=== PATIENT | male | born 1970 | race Caucasian/White ===

== ENCOUNTER 2023-07-05 11:16 | Outpatient (OUT) | payer OTHER, SELFPAY ==
[2023-07-05 12:01] LABS: Basophils Percent Auto 0.7 % (0.2-2.0); Eosinophils Absolute Auto 0.3 10^3/uL (0.0-0.7); Eosinophils Percent Auto 4.4 % (0.9-7.0); Hematocrit 44.2 % (42.0-54.0); Hemoglobin 14.8 g/dL (14.0-18.0); Immature Granulocytes Abs Auto 0.02 10^3/uL (0.00-0.03); Immature Granulocytes Pct Auto 0.4 % (0.0-0.5); Lymphocytes Absolute Auto 1.3 10^3/uL (1.2-3.8); Lymphocytes Percent Auto 22.9 % (20.5-60.0); Mean Corpuscular HGB Conc 33.5 g/dL (29.9-35.2); Mean Corpuscular Volume 92.7 fL (80.0-94.0); Mean Platelet Volume 9.7 fL (9.5-13.5); Monocytes Absolute Auto 0.4 10^3/uL (0.3-0.8); Monocytes Percent Auto 6.5 % (1.7-12.0); Neutrophils Absolute Auto 3.7 10^3/uL (1.4-6.5); Neutrophils Percent Auto 65.1 % (43.0-75.0); Platelet Count 219 10^3/uL (150-450); Red Blood Count 4.77 10^6/uL (4.70-6.10); Red Cell Distribution Width 12.6 % (11.0-15.0); White Blood Count 5.7 10^3/uL (4.0-11.0)
[2023-07-05 12:58] LABS: Alanine Aminotransferase 42 U/L (16-63); Albumin Globulin Ratio 1.1; Albumin Level 4.1 g/dL (3.4-5.0); Alkaline Phosphatase 89 U/L (46-116); Anion Gap 10.5; Aspartate Amino Transferase 21 U/L (15-37); BUN Creatinine Ratio 17.1; Bilirubin Total 0.7 mg/dL (0.2-1.0); Carbon Dioxide 30.7 mmol/L (21.0-32.0); Chloride 103 mmol/L (98-107); Chol HDL Ratio 4.1; Cholesterol 197 mg/dL (<=200); Estimated GFR (African America >60 (>=60); Estimated GFR (Non-African Ame >60 (>=60); Free T3 3.29 pg/mL (2.18-3.98); Globulin 3.6 g/dL; Glucose 106 mg/dL (74-106); HDL Cholesterol 48 mg/dL (40-60); Potassium 4.2 mmol/L (3.5-5.1); Sodium 140 mmol/L (136-145); Thyroid Stimulating Hormone 1.271 uIU/mL (0.358-3.740); Total Protein 7.7 g/dL (6.4-8.2); Triglycerides 140 mg/dL (<=150)
[2023-07-05 13:06] LABS: Prostate Specific Antigen Dx 0.49 ng/mL (<=4.00)
[2023-07-05 13:08] LABS: Estimated Average Glucose 100 mg/dL; Glycohemoglobin A1C 5.1 % (4.5-6.2)
[2023-07-06 11:11] LABS: Insulin 21.3 uIU/mL (2.6-24.9)
== END 2023-07-05 11:17 | disposition home or self-care (01) ==
LOC: LAB 11:22
PROVIDERS: PCP Family Medicine; Visit Provider Family Medicine
DX: Z00.00 Encounter for general adult medical examination without abnormal findings (principal)
CPT/HCPCS: 36415; 80053; 80061; 83036; 83525; 84153; 84436; 84443; 84481; 85025

== ENCOUNTER 2023-07-18 07:59 | Outpatient (OUT) | payer OTHER, SELFPAY ==
--- NOTE | 2023-07-18 08:01 | US_ITS ---
[address] [address] Patient Name: VALENTE SALINAS MRN: [id number] date: 1970 Sex: M Assigned Patient Location: [place] Current Patient Location: [place] Accession/Order Number: [id number] Exam Date: 07/18/2023 08:02 Report Date: 07/18/2023 11:38 At the request of: AMELIE CHADWICK Procedure: US carotid duplex BI EXAMINATION: US carotid duplex BI HISTORY: Tinnitus H93.19 COMPARISON: No relevant comparison available. TECHNIQUE: Duplex Doppler ultrasound analysis of carotid and vertebral arteries. . Bilateral carotid arterial duplex examination was performed using B-mode, color flow and spectral analysis. Carotid stenosis is reported according to validated velocity parameters, similar to NASCET criteria. FINDINGS: RIGHT CAROTID ARTERY No atherosclerotic plaque Subclavian: PSV: 81.1 cm/s cm/s EDV: 0.0 cm/s cm/s CCA: Prox: PSV: 76.8 cm/s cm/s EDV: 19.7 cm/s cm/s Mid: PSV: 75.7 cm/s cm/s EDV: 17.5 cm/s cm/s Distal: PSV: 60.3 cm/s cm/s EDV: 17.5 cm/s cm/s BULB: PSV: 36.2 cm/s cm/s EDV: 14.2 cm/s cm/s ICA: Prox: PSV: 45.5 cm/s cm/s EDV: 14.9 cm/s cm/s Mid: PSV: 53.3 cm/s cm/s EDV: 19.9 cm/s cm/s Distal: PSV: 65.8 cm/s cm/s EDV: 28.5 cm/s cm/s ECA: PSV: 52.6 cm/s cm/s EDV: 10.9 cm/s cm/s VERTEBRAL: PSV: 42.7 cm/s cm/s EDV: 17.5 cm/s cm/s, antegrade ICA/CCA ratio: PSV: 1.1 EDV: 1.6 LEFT CAROTID ARTERY no atherosclerotic plaque Subclavian: PSV: 94.3 cm/s cm/s EDV: 0.0 cm/s CCA: Prox: PSV: 98.2 cm/s cm/s EDV: 23.2 cm/s Mid: PSV: 73.6 cm/s cm/s EDV: 19.3 cm/s Distal: PSV: 65.8 cm/s cm/s EDV: 18.0 cm/s BULB: PSV: 40.9 cm/s cm/s EDV: 12.1 cm/s ICA: Prox: PSV: 40.9 cm/s cm/s EDV: 19.1 cm/s Mid: PSV: 69.7 cm/s cm/s EDV: 34.8 cm/s Distal: PSV: 69.1 cm/s cm/s EDV: 35.1 cm/s ECA: PSV: 51.5 cm/s cm/s EDV: 8.7 cm/s VERTEBRAL: PSV: 40.6 cm/s cm/s EDV: 16.4 cm/s , antegrade ICA/CCA ratio: PSV: 1.1 EDV: 1.9 US/US carotid duplex BI IMPRESSION: 0-49% flow stenosis bilateral internal carotid arteries Spectral Doppler US Thresholds (Reference: Caden EG, et al. Radiology 2000; 214:247-252) Stenosis (%) PSV (cm/sec) VICA/VCCA 0-49 <150 <2.5 50-69 150-225 2.5-4.0 >70 >225 >4.0 Electronically authenticated by: VALENTE DE LEÓN Date: 07/18/2023 11:38
--- OUTSIDE RECORDS SUMMARY | 2023-07-18 08:12 | XMS_ITS | CCD ---
Author Organization [facility] Care Team Providers Care Family Life Educator Name Role Phone DR AMELIE CHADWICK Primary Care Unavailable CLINT ANDREWS Attending Unavailable CLINT ANDREWS Admitting Unavailable DR GAMA PERRY Consulting Unavailable CLINT ANDREWS Consulting Unavailable DR AMELIE CHADWICK Consulting Unavailable DR AMELIE CHADWICK Primary Care Unavailable DR AMELIE CHADWICK Admitting Unavailable AKHIL, DR KINSEY Attending Unavailable Problems Active Problems Problem Classification Problem Date Documented Da te Episodic/Chronic Nonspecific chest pain (4 sources) Chest pain, unspecified; Translations: [CHEST PAIN UNSPECIFIED] Onset: 09-06-2020 Episodic Past or Other Problems Problem Classification Problem Date Documented Da te Episodic/Chronic Other screening for suspected conditions (not mental disorders or infectious disease) (1 source) Encounter for screening for malignant neoplasm of prostate; Translations: [ENC SCREEN MALIG NEOPLASM PROSTATE] Onset: 04-27-2020 Episodic Results Test Name Value Interpretation Reference Range Facility NM STRESS/REST MULTIon 09-06 NM STRESS/REST MULTI Patient: BIANCA SALINAS. Exam Date: 09/06/2020 : 1970 Gender:M Ordering : DR. CLINT ANDREWS . Admission #: [id number] Family : Order #: [id number] CLICK HERE TO VIEW EXAM RADIOLOGY REPORT PROCEDURE: RADIONUCLIDE IMAGING STRESS/REST MULTI COMPARISON: None. INDICATIONS: Chest pain TECHNIQUE: Exam Description: Stress/Rest one day protocol gated SPECT Rest Imagin.0 mCi Tc-99m Cardiolite IV on 09/06/2020 Stress Imaging 29.6 mCi Tc-99m Cardiolite IV on 09/06/2020 Exercise Protocol: Pedro Luis Heart Rate (bpm): Rest: 82 Max: 157 PMHR: 91 Blood Pressure: Rest: 148/92 Max: 208/92 Exercise Time: Minutes: 10 Seconds: 46 Stage Reached: Stage: 4 Mets 12.8 Symptoms: Rest and peak stress ECG findings were normal and the exercise portion of the study was normal per attending physician Dr. Andrews . For more details please see separate cardiac stress test report. FINDINGS: QUALITY OF STUDY: Excellent. PERFUSION DEFECT: LOCATION: Mid-anterior. Apical anterior. SIZE: Small (1-2 segments). SEVERITY: Mild. TYPE: Persistent. WALL MOTION: Normal. LV SIZE: Enlarged; EDV 125 mL. TID / TCD: None; 0.8 LVEF: Normal. Calculated EF 60%. SUMMARY: Myocardial perfusion imaging study has ABNORMAL findings. CONCLUSION: 1. No acute or reversible ischemia. 2. Very mild fixed perfusion defect versus breast attenuation artifact involving the mid and distal anterior wall. 3. Left ventricle volume is at the very upper limits of normal; 125 mL. 4. Normal wall motion and ejection fraction. Dictated by: Gama Perry M.D. on 09/06/2020 at 13:46 Approved by: Gama Perry M.D. on 09/06/2020 at 13:50 Normal [facility] CBC AUTO DIFFon 04-21-2020 BASO # 0.0 103/ul Normal 0.0-0.1 [facility] Comment on above: Performed By: #### C BC #### [facility] [address], [place] [address] Florentin Sandrine Basophils/100 WBC (Bld) 0.4 % Normal 0.2-2.0 [facility] Comment on above: Performed By: #### C BC #### [facility] [address], [place] [address] Florentin Sandrine EO # 0.2 103/ul Normal 0.0-0.7 [facility] Comment on above: Performed By: #### C BC #### [facility] [address] [place], [place] [address] Florentin Sandrine Eosinophils/100 WBC (Bld) 4.0 % Normal 0.9-7.0 [facility] Comment on above: Performed By: #### C BC #### [facility] [address] [place], [place] [address] Florentin Sandrine Erythrocyte distribution width (RBC) [Ratio] 12.9 % Normal 11.0-15.0 [facility] Comment on above: Performed By: #### C BC #### [facility] [address] [place] [address] Florentin Deluca Hematocrit (Bld) [Volume fraction] 44.4 % Normal 42.0-54.0 [facility] Comment on above: Performed By: #### C BC #### [facility] [address] [place] [address] Florentinsharmin Deluca Hemoglobin (Bld) [Mass/Vol] 14.7 g/dL Normal 14.0-18.0 [facility] Comment on above: Performed By: #### C BC #### [facility] [address] [place] [address] Florentinsharmin Deluca IG # 0.01 10e3/ul Normal 0.00-0.03 [facility] Comment on above: Performed By: #### C BC #### [facility] [address] [place] [address] Florentinsharmin Deluca IG % 0.2 % Normal 0.0-0.5 [facility] Comment on above: Performed By: #### C BC #### [facility] [address] [place] [address] Florentin Deluca LYMPH # 1.4 103/ul Normal 1.2-3.8 [facility] Comment on above: Performed By: #### C BC #### [facility] [address] [place] [address] Florentin Deluca Lymphocytes/100 WBC (Bld) 25.2 % Normal 20.5-60.0 [facility] Comment on above: Performed By: #### C BC #### [facility] [address] [place] [address] Florentin Deluca MANUAL DIFF REQ NO Normal [facility] Comment on above: Performed By: #### C BC #### [facility] [address] [place], [place] [address] Florentin Deluca MCH (RBC) [Entitic mass] 30.1 pg Normal 25.9-34.0 [facility] Comment on above: Performed By: #### C BC #### [facility] [address], [place] [address] Florentinsharmin Deluca MCHC (RBC) [Mass/Vol] 33.1 g/dL Normal 29.9-35.2 [facility] Comment on above: Performed By: #### C BC #### [facility] [address] [place], [place] [address] Florentinsharmin Deluca MCV (RBC) [Entitic vol] 90.8 fL Normal 80.0-94.0 [facility] Comment on above: Performed By: #### C BC #### [facility] [address] [place] [id number] Florentin Sandrine MONO # 0.4 103/ul Normal 0.3-0.8 [facility] Comment on above: Performed By: #### C BC #### [facility] [address] [place], [place] [address] Florentin Sandrine Monocytes/100 WBC (Bld) 6.9 % Normal 1.7-12.0 [facility] Comment on above: Performed By: #### C BC #### [facility] [address] [place], [place] [address] Florentin Sandrine NEUT # 3.5 103/ul Normal 1.4-6.5 [facility] Comment on above: Performed By: #### C BC #### [facility] [address] [place], [place] [address] Florentin Sandrine Neutrophils/100 WBC (Bld) 63.3 % Normal 43.0-75.0 [facility] Comment on above: Performed By: #### C BC #### [facility] [address] [place] [address] Florentin Sandrine Platelet mean volume (Bld) [Entitic vol] 9.7 fL Normal 9.5-13.5 [facility] Comment on above: Performed By: #### C BC #### [facility] [address] [place], [place] [address] Florentin Sandrine PLT 207 103/ul Normal 150-450 [facility] Comment on above: Performed By: #### C BC #### [facility] [address] [place], [place] [address] Florentin Sandrine RBC 4.89 106/ul Normal 4.70-6.10 [facility] Comment on above: Performed By: #### C BC #### [facility] [address] [place] [address] Florentinsharmin Deluca WBC 5.5 103/ul Normal 4.0-11.0 [facility] Comment on above: Performed By: #### C BC #### [facility] [address] [place] [address] Florentin Deluca FREE THYROXINE INDEX T7on FTI 2.66 Normal [facility] Comment on above: Performed By: #### C MP, PSASC, T7, LIPID #### [facility] [address] [place] [address] Florentin Deluca T3U 35.0 % Normal 23.5-40.5 [facility] Comment on above: Performed By: #### C MP, PSASC, T7, LIPID #### [facility] [address] [place] [address] Florentinsharmin Villagomezen T4 [Mass/Vol] 7.60 ug/dL Normal 5.53-11.00 [facility] Comment on above: Performed By: #### C MP, PSASC, T7, LIPID #### [facility] [address] [place] [address] Florentin Deluca GLYCOHEMOGLOBIN A1Con 2020 ADA RECOMMENDATION ADA THERAPEUTIC TARG ET 6.0 - 7.0 ACTION SUGGESTED > 7.0 Normal [facility] Comment on above: Performed By: #### A 1C #### [facility] [address] [place] [address] Florentin Sandrine Glucose [Mass/Vol] 105 mg/dL Normal [facility] Comment on above: Performed By: #### A 1C #### [facility] [address] [place] [address] Florentin Sandrine HbA1c (Bld) [Mass fraction] 5.3 % Normal <=6.0 [facility] Comment on above: Performed By: #### A 1C #### [facility] [address] [place], [place] [address] Florentin Sandrine LIPID PROFILEon 04-21-2020 CHOL-HDL RATIO NORM SEE BELOW Normal [facility] Comment on above: Result Comment: 3.3 - 4.4 LOW RISK 4.4 - 7.1 AVERAGE RISK 7.1 - 11.0 MODERATE RISK >11.0 HIGH RISK Performed By: #### C MP, PSASC, T7, LIPID #### [facility] [address], [place] [address] Florentin Sandrine Cholesterol [Mass/Vol] 163 mg/dL Normal <=200 [facility] Comment on above: Performed By: #### C MP, PSASC, T7, LIPID #### [facility] [address] [place], [place] [address] Florentin Sandrine Cholesterol in HDL [Mass/Vol] 40 mg/dL Normal [facility] Comment on above: Performed By: #### C MP, PSASC, T7, LIPID #### [facility] [address] [place], [place] [address] Florentin Sandrine Cholesterol in LDL [Mass/Vol] 106.0 mg/dL Normal [facility] Comment on above: Performed By: #### C MP, PSASC, T7, LIPID #### [facility] [address] [place], [place] [address] Florentin Sandrine Cholesterol.total/Ch olesterol in HDL [Mass ratio] 4.1 {ratio} Normal [facility] Comment on above: Performed By: #### C MP, PSASC, T7, LIPID #### [facility] [address] [place], [place] [address] Florentin Sandrine HDL NORMAL > or = 60 mg/dl - LO W CARDIOVASCULAR RISK <40 mg/dl - HIGH CARDIOVASCULAR RISK Normal [facility] Comment on above: Performed By: #### C MP, PSASC, T7, LIPID #### [facility] [address] [place] [id number] Florentin Sandrine LDL CALC NORMAL SEE BELOW Normal [facility] Comment on above: Result Comment: <100 mg/dl OPTIMAL 100 - 129 mg/dl NEAR OR ABOVE OPTIMAL 130 - 159 mg/dl BORDERLINE HIGH 160 - 189 mg/dl HIGH >190 mg/dl VERY HIGH Performed By: #### C MP, PSASC, T7, LIPID #### [facility] [address] [place] [id number] Florentinsharmin Deluca Triglyceride [Mass/Vol] 85 mg/dL Normal <=150 [facility] Comment on above: Performed By: #### C MP, PSASC, T7, LIPID #### [facility] [address] [place] [id number] Florentinsharmin Villagomezen VLDL CALC 17.0 mg/dL Normal [facility] Comment on above: Performed By: #### C MP, PSASC, T7, LIPID #### [facility] [address] [place] [id number] Florentin Deluca PROF 14(COMP METB)on 021 Albumin [Mass/Vol] 4.0 g/dL Normal 3.5-5.[address] [facility] Comment on above: Performed By: #### C MP, PSASC, T7, LIPID #### [facility] [address] [place] [address] Florentinsharmin Deluca Albumin/Globulin [Mass ratio] 1.2 {ratio} Normal [facility] Comment on above: Performed By: #### C MP, PSASC, T7, LIPID #### [facility] [address] [place] [id number] Florentinsharmin Deluca ALP [Catalytic activity/Vol] 64 U/L Normal 38-126 [facility] Comment on above: Performed By: #### C MP, PSASC, T7, LIPID #### [facility] [address] [place] [place] [address] Florentinsharmin Deluca ALT [Catalytic activity/Vol] 36 U/L Normal 21-72 [facility] Comment on above: Performed By: #### C MP, PSASC, T7, LIPID #### [facility] [address] [place] [id number] Florentinsharmin Deluca Anion gap [Moles/Vol] 10.8 mmol/L Normal [facility] Comment on above: Performed By: #### C MP, PSASC, T7, LIPID #### [facility] [address] [place] [id number] Florentin Sandrine AST [Catalytic activity/Vol] 20 U/L Normal 17-59 [facility] Comment on above: Performed By: #### C MP, PSASC, T7, LIPID #### [facility] [address] [place] [address] Florentin Sandrine Bilirubin [Mass/Vol] 0.9 mg/dL Normal 0.2-1.3 [facility] Comment on above: Performed By: #### C MP, PSASC, T7, LIPID #### [facility] [address] [place] [address] Florentin Sandrine Calcium [Mass/Vol] 9.2 mg/dL Normal 8.4-10.2 [facility] Comment on above: Performed By: #### C MP, PSASC, T7, LIPID #### [facility] [address] [place] [address] Florentin Sandrine Chloride [Moles/Vol] 102 mmol/L Normal 98-107 [facility] Comment on above: Performed By: #### C MP, PSASC, T7, LIPID #### [facility] [address] [place] [address] Florentin Sandrine CO2 [Moles/Vol] 30.4 mmol/L Critically high 22.0-30.0 [facility] Comment on above: Performed By: #### C MP, PSASC, T7, LIPID #### [facility] [address] [place] [address] Florentin Sandrine Creatinine [Mass/Vol] 1.01 mg/dL Normal 0.66-1.25 [facility] Comment on above: Performed By: #### C MP, PSASC, T7, LIPID #### [facility] [address] [place] [address] Florentin Sandrine EGFR-AF LIBYAN >60 Normal >=60 [facility] Comment on above: Performed By: #### C MP, PSASC, T7, LIPID #### [facility] [address] [place] [address] Florentin Sandrine EGFR-NON AF LIBYAN >60 Normal >=60 [facility] Comment on above: Performed By: #### C MP, PSASC, T7, LIPID #### [facility] [address] [place] [address] Florentin Sandrine Globulin (S) [Mass/Vol] 3.4 g/dL Normal [facility] Comment on above: Performed By: #### C MP, PSASC, T7, LIPID #### [facility] [address] [place] [address] Florentin Sandrine Glucose [Mass/Vol] 102 mg/dL Normal 74-106 [facility] Comment on above: Performed By: #### C MP, PSASC, T7, LIPID #### [facility] [address] [place] [address] Florentin Sandrine Potassium [Moles/Vol] 4.2 mmol/L Normal 3.4-5.0 [facility] Comment on above: Performed By: #### C MP, PSASC, T7, LIPID #### [facility] [address] [place] [address] Florentin Sandrine Protein [Mass/Vol] 7.4 g/dL Normal 6.1-8.2 [facility] Comment on above: Performed By: #### C MP, PSASC, T7, LIPID #### [facility] [address] [place] [address] Florentin Sandrine Sodium [Moles/Vol] 139 mmol/L Normal 137-145 [facility] Comment on above: Performed By: #### C MP, PSASC, T7, LIPID #### [facility] [address] [place] [address] Florentin Sandrine Urea nitrogen [Mass/Vol] 12.0 mg/dL Normal 9.0-20.0 [facility] Comment on above: Performed By: #### C MP, PSASC, T7, LIPID #### [facility] [address] [place] [address] Florentin Sandrine Urea nitrogen/Creatinine [Mass ratio] 11.9 mg/mg Normal [facility] Comment on above: Performed By: #### C MP, PSASC, T7, LIPID #### [facility] [address] [place] [address] Florentin Sandrine TSHon 04-21-2020 TSH 1.093 uIU/mL Normal 0.470-4.680 [facility] Comment on above: Performed By: #### T SH #### [facility] [address], [place] [address] Florentin Deluca TSH RANGE SEE BELOW Normal [facility] Comment on above: Result Comment: <0.3 4 UIU/ml HYPERTHYROID 0.34-5.60 UIU/ml EUTHYROID >5.60 UIU/ml HYPOTHYROID Performed By: #### T SH #### [facility] [address], [place] [address] Florentin Deluca Reminderson 09-14-2018 Reminders - From: Jaime Plata To: N - Clinical; Sent: 09/14/2018 10:05:54 EDT Show up: 07/06/2028 10:05:00 EDT Subject: colonoscopy recall reminder 10 years Reminder/Recall Screening colonoscopy 10 year reminder following screening colonoscopy on 07/11/18 [facility] Coding Summary.on 07-15-2018 Coding Summary. CODING DATE: 07/15/2018 [facility] STATUS: Home (Routine DC) PAYOR: [employer] APC DESCRIPTION 5311 Level 1 Lower GI Procedures ADMIT DX: REASON FOR VISIT DX: Z12.11 Encounter for screening for malignant neoplasm of colon FINAL DX: PRINCIPAL: Z12.11 Encounter for screening for malignant neoplasm of colon SECONDARY: K57.30 Diverticulosis of large intestine without perforation or abscess without bleeding PYMT PROC APC STAT DESCRIPTION DOCTOR NAME DATE 09192 5311 T Colonoscopy, flexible; Anderson BERNAL MD 07/11/2018 diagnostic, including collection of specimen(s) by brushing or washing, when performed (separate procedure) 10679 Anesthesia for lower Jaramillo Dejuan Winters DO 07/11/2018 intestinal endoscopic procedures, endoscope introduced distal to duodenum; screening colonoscopy NOTE: The code number assigned matches the documented diagnosis and / or procedure in the patient's chart. However, the narrative phrase printed from the coding software may appear abbreviated, or result in slightly different terminology. Revised Coded By: Sofi Tovar Revised Date Saved: 07/15/2018 09:43 am [facility] Progress Note-Physicianon Progress Note-Physician Patient: VALENTE SALINAS Age: 47 years Sex: Male : 1970 Associated Diagnoses: None Author: Dejuan Jaramillo Jr, DO Preoperative Information Anesthesia Preop Information NPO 8 HOURS EXCEPT GI PREP AT LEAST 4 HOURS PRIOR TO PROCEDURE Anesthesia history: Patient history: No prior anesthesia problems. Re-evaluation prior to induction: Initial evaluation reviewed: No significant change. Anesthesia results Review of Systems Cardiovascular: Negative. Respiratory: Negative. Health Status Allergies: No active allergies have been recorded. Current medications: (Selected) , No qualifying data available Problem list: No problem items selected or recorded. Histories Past Medical History: No active or resolved past medical history items have been selected or recorded. Social History Social & Psychosocial Habits No Data Available . Physical Examination Airway: Mallampati classification: II (soft palate, fauces, uvula visible). Respiratory: Lungs are clear to auscultation. Cardiovascular: Regular rhythm. Neurologic: Alert, Oriented. Plan Stateless Society of Anesthesiologists (ASA) physical status classification: Class II. Anesthetic Preoperative Plan Anesthesia: General. . Anesthetic plan, risks, benefits, and alternatives discussed with the patient and/or family. Communication: face to face with (patient 5 minutes, Patient educated on smoking cesstation). [facility] Comment on above: Result Comment: Elec tronically Signed By: Dejuan Jaramillo Jr, DO\.br\Date and Time Signed: 07/12/18 09:24 EDT History and Physicalon 07-11 History and Physical Patient: BIANCA SALINAS Age: 47 years Sex: Male : 1970 Associated Diagnoses: None Author: Anderson BERNAL MD Subjective no changes to H & P [facility] Comment on above: Result Comment: Elec tronically Signed By: Anderson BERNAL MD\.br\Date and Time Signed: 07/11/18 07:46 EDT Inpatient Patient Summaryon 07-11-2018 Inpatient Patient Summary [facility] Clinical Discharge Instructions PERSON INFORMATION Name: VALENTE SALINAS PHYSICIANS Admitting Physician: Anderson BERNAL MD Attending Physician: Anderson BERNAL MD PCP: Akhil COLLAZO, Amelie Discharge Diagnosis: Colon, diverticulosis Comment: PATIENT EDUCATION INFORMATION Instructions: Diverticulosis; Colonoscopy, Care After Surgery Salam (CUSTOM) Medication Leaflets: Follow up: With: Address: When: Anderson BERNAL [address] [place] [address] Business (1) , only if needed MEDICATION LIST Comment: Normal [facility] Main OR Intraoperative Recor don 07-11-2018 Main OR Intraoperative Record IntraOp Document Type FT Summary Primary Physician: Anderson BERNAL MD Finalized Date/Time: 07/11/18 13:20:10 Pt. Name: VALENTE SALINAS/Sex: 1970 Male Med Rec #: [id number] Physician: Anderson BERNAL MD Financial #: [id number] Pt. Type: O Room/Bed: / Admit/Disch: 07/11/18 07:34:04 - Institution: Case Times FT Entry 1 Patient Times In Room 07/11/18 08:26:00 Out Room 07/11/18 08:42:00 Procedure Times Start 07/11/18 08:31:00 Stop 07/11/18 08:39:00 Anesthesia Times Start 07/11/18 08:26:00 Stop 07/11/18 08:42:00 Time at [facility] 07/11/18 08:36:00 Last Modified By: Janeth Ingram CST 07/11/18 08:42:57 General Comments: 07/11/18 Chart opened to review and send charges Christine Ingram DEPILATORY PAINTER Case Attendance FT Entry 1 Entry 2 Entry 3 Case Attendee Shaq Ly JR, DO, MD, Anderson Scales DEPILATORY PAINTER/, Kayla Role Performed Anesthesiologist of Surgeon - Primary Scrub - Primary Record Time In 07/11/18 08:26:00 07/11/18 08:26:00 07/11/18 08:26:00 Time Out 07/11/18 08:42:00 07/11/18 08:42:00 07/11/18 08:42:00 Procedure COLONOSCOPY(.) COLONOSCOPY(.) COLONOSCOPY(.) Comments Last Modified By: Lorrie Olguin RN, RN, Lorrie Dudley RN 07/11/18 08:43:00 07/11/18 08:43:00 07/11/18 08:43:00 Entry 4 Case Attendee Lorrie Olguin RN Role Performed Forest Products Gatherer - Primary Time In 07/11/18 08:26:00 Time Out 07/11/18 08:42:00 Procedure COLONOSCOPY(.) Comments Last Modified By: Lorrie Olguin RN 07/11/18 08:43:00 Perioperative Protocols FT Pre-Care Text: Implements protective measures prior to operative or invasive procedure, confirms identity before the operative or invasive procedure, verifies operative procedure, surgical site, and laterality Entry 1 Procedure(s) COLONOSCOPY(.) Patient Identity Birthday, ID Band Verified (select at Check, Patient least 2): Participation Consents / H and P Anesthesia Consent, Operative Site N/A Verified HandP, Surgery/Procedure Marking Verified Consent Surgical Site No Laterality Verified n/a Verified Procedure Verified Yes Correct Patient Yes Position Verified Availability Equipment, Medication Prep Dry n/a Verified (If Applicable) PreOp Antibiotic No Time Out Anderson BERNAL MD, Given Participants Loyda DEPILATORY PAINTER/SA, Clau Garza RN, Aliyah Andrew JR, DO, Shaq King Time Out Complete 07/11/18 08:28:00 Outcomes Met? Yes Last Modified By: Lorrie Olguin RN 07/11/18 08:28:54 Post-Care Text: The patient is free from signs and symptoms of injury caused by extraneous objects Allergy Information FT Pre-Care Text: Verifies allergies Entry 1 Allergies Reviewed? Yes Allergies Reviewed Self/Patient With Outcomes Met? Yes Last Modified By: Lorrie Olguin RN 07/11/18 06:52:59 Post-Care Text: The patient received appropriate medication(s) safely administered during the perioperative period Surgical Procedures FT Entry 1 Procedure Description Procedure COLONOSCOPY Modifiers . Surgeon Description COLONOSCOPY Primary Procedure Yes Primary Surgeon Anderson BERNAL MD Start 07/11/18 08:31:00 Stop 07/11/18 08:39:00 Anesthesia Type General Surgical Service General Wound Class 2 - Clean-Contaminated Last Modified By: Lorrie Olguin RN 07/11/18 08:39:56 General Case Data FT Pre-Care Text: Classifies surgical wound, implements aseptic technique, initiates traffic control Entry 1 Case Information OR ENDO 2 FT Case Level Level 2 Wound Class 2 - Clean-Contaminated Specialty General ASA Class 2 Preop Diagnosis SCREENING Postop Same As Preop No Postop Diagnosis Diverticulosis Outcomes Met? Yes Last Modified By: Lorrie Olguin RN 07/11/18 08:38:20 Post-Care Text: The patient is free from signs and symptoms of infection Skin Assessment (Pre Procedure) FT Pre-Care Text: Implements protective measures to prevent skin/ tissue injury due to thermal or mechanical sources Evaluates for signs and symptoms of physical injury to skin and tissue Entry 1 Skin Integrity Dry, Warm Skin Abnormality No Outcomes Met? Yes Last Modified By: Lorrie Olguin RN 07/11/18 06:53:25 Post-Care Text: The patient is free from signs and symptoms of injury caused by extraneous objects Patient Positioning FT Pre-Care Text: Identifies physical alterations that require additional precautions for procedure-specific positioning, verifies presence of prosthetics or corrective devices, positions the patient, evaluates the patient for signs and symptoms of injury as a result of positioning Entry 1 Procedure COLONOSCOPY(.) Body Position Lateral, right side up Feet Uncrossed? Yes Left Arm Position Resting at Side Right Arm Position Resting at Side Left Leg Position Extended Right Leg Position Extended Positioning Device Safety Strap, Pillow Under Head Large Press Points Checked Yes By Lorrie Olguin RN, Shaq Ly JR, DO Outcomes Met? Yes Last Modified By: Lorrie Olguin RN 07/11/18 07:38:53 Post-Care Text: The patient is free from signs and symptoms of injury related to positioning Patient Care Devices FT Pre-Care Text: Implements protective measures to prevent skin/ tissue injury due to thermal or mechanical sources Entry 1 Entry 2 Equipment Type ENDOSCOPY VIDEO MONITOR CHARGE SURGERY SYSTEM[F] [F] Equipment Number [id number] Equipment Setting Outcomes Met? Yes Yes Last Modified By: Lorrie Olguin RN, RN, Renee 07/11/18 06:53:54 07/11/18 06:53:54 Post-Care Text: The patient is free from signs and symptoms of injury caused by extraneous objects Transport To OR FT Pre-Care Text: Transports according to individual needs. Evaluates for signs and symptoms of skin and tissue injury as a result of transfer or transport Entry 1 Via Cart By Lorrie Olguin RN Safety Precautions Side Rails Up Outcomes Met? Yes Last Modified By: Lorrie Olguin RN 07/11/18 06:54:02 Post-Care Text: The patient is free from signs and symptoms of injury related to transfer/transport Departure From OR FT Pre-Care Text: Transports according to individual needs. Evaluates for signs and symptoms of skin and tissue injury as a result of transfer or transport. Entry 1 Via Cart Safety Precautions Safety Strap, Side Rails Up PostOp Destination PACU Transported By Lorrie Olguin RN Patient Status Stable Skin. Condition Dry, Warm Airway Maintenance Oxygen in Use? No Outcomes Met? Yes Last Modified By: Lorrie Olguin RN 07/11/18 08:31:43 Post-Care Text: The patient is free from signs and symptoms of injury related to transfer/transport General Comments: Report given to DISABILITY BENEFITS SPECIALIST. RHRN Medication Administration FT Pre-Care Text: Verifies allergies, administers prescribed medications and solutions, administers prescribed antibiotic therapy and immunizing agents as ordered, evaluates response to medications Administers prescribed medications and solutions Entry 1 Expiration Date Yes Outcomes Met? Yes Verified Last Modified By: Lorrie Olguin RN 07/11/18 06:55:03 Post-Care Text: The patient received appropriate medication(s) safely administered during the perioperative period For [facility] please see scanned medication reconcilliation form for medications used at the field during the procedure. Cultures and Specimens FT Pre-Care Text: Manages specimen handling and disposition Manages culture specimen collection Entry 1 Cultures Ordered No Specimens Ordered No Frozen Section Times Outcomes Met? Yes Last Modified By: Lorrie Olguin RN 07/11/18 08:40:22 Post-Care Text: The patient is free from signs and symptoms of injury caused by extraneous objects The patient is free from signs and symptoms of infection Case Comments Finalized By: Janeth Ingram CST Document Signatures Signed By: Lorrie Olguin RN 07/11/18 08:43 Janeth Ingram CST 07/11/18 13:20 [facility] Main OR PACU I Recordon Main OR PACU I Record PACU Phase I Document Type FT Summary Primary Physician: Anderson BERNAL MD Finalized Date/Time: 07/11/18 09:26:27 Pt. Name: VALENTE SALINAS /Sex: 1970 Male [facility] Rec #: [id number] Physician: Anderson BERNAL MD Financial #: [id number] Pt. Type: O Room/Bed: / Admit/Disch: 07/11/18 07:34:04 - Institution: Case Times PACU I FT Pre-Care Text: Identifies barriers to communication and implements measures to provide psychological support Develops individualized plan of care, and ensures continuity of care Maintains patient's dignity and privacy, and maintains patient confidentiality Identifies and reports philosophical, cultural, and spiritual beliefs and values Identifies individual values and wishes concerning care Implements aseptic technique, and administers prescribed antibiotic therapy and immunizing agents as ordered Evaluates postoperative tissue perfusion Implements thermoregulation measures, and monitors body temperature Evaluates postoperative respiratory status Evaluates postoperative cardiac status Evaluates postoperative neurological status Assesses pain control, collaborated in initiating patient-controlled analgesia and implements alternative methods of pain control Verifies allergies, administers prescribed medications and solutions, evaluates response to medications Entry 1 In PACU I 07/11/18 08:46:00 Discharge from PACU 07/11/18 09:16:00 I Outcomes Met? Yes Last Modified By: Lorrie Olguin RN 07/11/18 09:26:03 Post-Care Text: The patient demonstrates knowledge of the expected response to the operative or invasive procedure The patient's care is consistent with the individualized perioperative plan of care The patient's right to privacy is maintained The patient's value system, lifestyle, ethnicity, and culture are considered, respected, and incorporated into the perioperative plan of care The patient participates in decisions affecting his or her perioperative plan of care The patient is free from signs and symptoms of infection The patient has wound/tissue perfusion consistent with or improved from baseline levels established preoperatively The patient is at or returning to normothermia at the conclusion of the immediate postoperative period The patient's respiratory function is consistent with or improved from baseline levels established preoperatively The patient's cardiovascular status is consistent with or improved from baseline levels established preoperatively The patient's cardiovascular status is consistent with or improved from baseline levels established preoperatively The patient demonstrates and/or reports adequate pain control throughout the perioperative period The patient received appropriate medication(s), safely administered during the perioperative period Acuity Level PACU I FT Entry 1 Start Time 07/11/18 08:46:00 Stop Time 07/11/18 09:16:00 Acuity Level Acuity Level I Last Modified By: Lorrie Olguin RN 07/11/18 09:26:23 Finalized By: Lorrie Olguin RN Document Signatures Signed By: Lorrie Olguin RN 07/11/18 09:26 Normal [facility] Main OR Preoperative Recordo n 07-11-2018 Main OR Preoperative Record Holding Area Document Type FT Summary Primary Physician: Anderson BERNAL MD Finalized Date/Time: 07/11/18 07:48:57 Pt. Name: BRADVALENTE/Sex: 1970 Male Med Rec #: [id number] Physician: Anderson BERNAL MD Financial #: [id number] Pt. Type: O Room/Bed: / Admit/Disch: 07/11/18 07:34:04 - Institution: Case Times Holding FT Pre-Care Text: Verifies consent for planned procedure, identifies individual values and wishes concerning care, includes family members in perioperative teaching Secures patient's records' belongings, and valuables, maintains patient's dignity and privacy, and maintains patient confidentiality Entry 1 In Holding 07/11/18 07:43:00 Outcomes Met? Yes Last Modified By: Charis Ingram RN 07/11/18 07:43:55 Post-Care Text: The patient participates in decisions affecting his or her perioperative plan of care The patient's right to privacy is maintained Surgery Checklist FT Entry 1 Patient Birthday, ID Band Procedure History and Physical, Identification: Check, Patient Verification: Surgical Consent, With Participation Patient NPO after Midnight: Yes Personal Items: Contact Lenses Complaints of Pain: No Pain Comment: denies Operative Site n/a Availability Equipment Marking: Verified: Does Patient Smoke No Patient states Yes Comment - Adult postop adult Supervision supervision available Case Cancelled in No Holding Area see comments below for reason Last Modified By: Charis Ingram RN 07/11/18 07:46:22 Finalized By: Charis Ingram RN Document Signatures Signed By: Charis Ingram RN 07/11/18 07:46 Charis Ingram RN 07/11/18 07:48 Normal [facility] Operative Reporton 9 Operative Report Date of Surgery: 07/11/2018 SURGEON: Anderson Bernal M.D. PREOPERATIVE DIAGNOSIS: Colorectal screening POSTOPERATIVE DIAGNOSIS: Descending sigmoid diverticulosis, mild OPERATION: Colonoscopy to cecum ANESTHESIA: Monitored anesthesia care ANESTHESIOLOGIST: Tyson Ly Jr., D.O. ESTIMATED BLOOD LOSS: Zero INDICATIONS AND CONSENT: The patient is a 47 year old male who presents for colorectal screening. Indications, risks, benefits, alternatives of proceeding with colonoscopy were explained extensively to the patient including the risk of bleeding, colon perforation or anesthetic complications. All of his questions were answered. Informed consent was obtained. PROCEDURE: The patient was brought to the Operating Room and placed in the left lateral decubitus position. Monitored anesthesia care was provided. Rectal examination was performed which revealed no masses or blood. The scope was inserted at the anal canal under direct visualization it was advanced. With the aid of abdominal compression it was advanced to the cecum where cecal markings were clearly identified. There was noted to be a good prep. Upon withdrawal of the scope mucosal surfaces were carefully examined. There is no mass, lesions, or polyps. No inflammatory changes or ulcerations. There was mild descending and sigmoid diverticulosis without inflammatory changes or scarring. The scope was retroflexed in the anal canal. There was no significant hemorrhoidal disease. The scope was then withdrawn. The patient tolerated the procedure well, was sent to the Recovery Room in good condition. Bryan Rosa Dictated: 07/11/2018 #[id number] Typed: 07/11/2018 #[id number] cc: Bryan Mane M.D. [facility] Comment on above: Result Comment: Elec tronically Signed By: Anderson BERNAL MD\Date and Time Signed: 07/11/18 09:15 EDT Patient Education - Texton 0 07-11-2018 Patient Education - Text Colonoscopy Care After Surgery Please read the instructions outlined below and refer to this sheet in the next few weeks. These discharge instructions provide you with general information on caring for yourself after you leave the hospital. Your doctor may also give you specific instructions. While your treatment has been planned according to the most current medical practices available, unavoidable complications occasionally occur. If you have any problems or questions after discharge, please call your doctor. ACTIVITY You may resume your regular activity, but move at a slower pace for the next 24 hours. Take frequent rest periods for the next 24 hours. Walking will help get rid of the air and reduce the bloated feeling in your abdomen (belly). No driving for 24 hours (because of the anesthesia (medicine) used during the test). You may shower. Do not sign any important legal documents or operate any machinery for 24 hours (because of the anesthesia used during the test). NUTRITION Drink plenty of fluids. You may resume your normal diet as instructed by your doctor. Begin with a light meal and progress to your normal diet. Heavy or fried foods are harder to digest and may make you feel nauseated (sick to your stomach). Avoid alcoholic beverages for 24 hours or as instructed. MEDICATIONS You may resume your normal medications unless your doctor tells you otherwise. WHAT YOU CAN EXPECT TODAY Some feelings of bloating in the abdomen. Passage of more gas than usual. Spotting of blood in your stool or on the toilet paper. FOLLOW-UP Your doctor will discuss the results of your test with you. SEEK IMMEDIATE MEDICAL ATTENTION IF: There is more than a spotting of blood in your stool. There is abdominal distention (your abdomen is swollen). There is vomiting. You have a temperature over 101.5 F. There is abdominal pain or discomfort that is severe or gets worse throughout the day. Family Medicine Diverticulosis Diverticulosis is the condition that develops when small pouches (diverticula) form in the wall of your colon. Your colon, or large intestine, is where water is absorbed and stool is formed. The pouches form when the inside layer of your colon pushes through weak spots in the outer layers of your colon. CAUSES No one knows exactly what causes diverticulosis. RISK FACTORS ? Being older than 50. Your risk for this condition increases with age. Diverticulosis is rare in people younger than 40 years. By age 80, almost everyone has it. ? Eating a low-fiber diet. ? Being frequently constipated. ? Being overweight. ? Not getting enough exercise. ? Smoking. ? Taking buzv-zsl-jggsble pain medicines, like aspirin and ibuprofen. SYMPTOMS Most people with diverticulosis do not have symptoms. DIAGNOSIS Because diverticulosis often has no symptoms, health care providers often discover the condition during an exam for other colon problems. In many cases, a health care provider will diagnose diverticulosis while using a flexible scope to examine the colon (colonoscopy). TREATMENT If you have never developed an infection related to diverticulosis, you may not need treatment. If you have had an infection before, treatment may include: ? Eating more fruits, vegetables, and grains. ? Taking a fiber supplement. ? Taking a live bacteria supplement (probiotic). ? Taking medicine to relax your colon. HOME CARE INSTRUCTIONS ? Drink at least 6?8 glasses of water each day to prevent constipation. ? Try not to strain when you have a bowel movement. ? Keep all follow-up appointments. If you have had an infection before:? ? Increase the fiber in your diet as directed by your health care provider or dietitian. ? Take a dietary fiber supplement if your health care provider approves. ? Only take medicines as directed by your health care provider. SEEK MEDICAL CARE IF: ? You have abdominal pain. ? You have bloating. ? You have cramps. ? You have not gone to the bathroom in 3 days. SEEK IMMEDIATE MEDICAL CARE IF: ? Your pain gets worse. ? Your?bloating becomes very bad. ? You have a fever or chills, and your symptoms suddenly get worse. ? You begin vomiting. ? You have bowel movements that are bloody or black. MAKE SURE YOU: ? Understand these instructions. ? Will watch your condition. ? Will get help right away if you are not doing well or get worse. Document Released: 10/19/2004 Document Revised: 01/27/2014 Document Reviewed: 12/17/2013 ExitCare? Patient Information ?2014 [employer]. This information is not intended to replace advice given to you by your health care provider. Make sure you discuss any questions you have with your health care provider. Normal [facility] Progress Note-Physicianon Progress Note-Physician Patient: VALENTE SALINAS Age: 47 years Sex: Male : 1970 Associated Diagnoses: None Author: Shaq Ly JR, DO Preoperative Information Anesthesia history: Patient History: Pt./ family denies any personal or family hx of problems/difficulties with anesthesia.. Re-eval prior to induction: Inital eval reviewed: No significant interval change, NPO 10 hours, except for GI. prep which ( when administered ), was completed at least 4 hours prior to the procedure.. Anesthesia results Review of Systems Constitutional: See nursing assessment.. Cardiovascular: Cardiac risk assessment performed. Pt. denies any significant change in their cv hx.. Respiratory: Pt. denies any signicant change in their respiratory status.. Neurologic: Pt. denies any acute neurological changes.. Health Status Allergies: Allergic Reactions (Selected) No Known Allergies, Allergies (1) Active Reaction No Known Allergies None Documented Current medications: (Selected) Inpatient Medications Ordered Sodium Chloride 0.9% IV Esther 1000 mL 1,000 mL: 1,000 mL, IV, 20 mL/hr, Routine, Start date 07/11/18 7:55:00 EDT, 50 hour(s), Total volume (mL): 1,000, Medications (1) Active Scheduled: (0) Continuous: (1) Sodium Chloride 0.9% 1,000 mL 1,000 mL, IV, 20 mL/hr PRN: (0) Problem list: No problem items selected or recorded., No qualifying data available Histories Past Medical History: No active or resolved past medical history items have been selected or recorded. Family History: No family history items have been selected or recorded. Procedure history: No active procedure history items have been selected or recorded. Social History Social & Psychosocial Habits No Data Available . Physical Examination Vital Signs (last 24 hrs) Last Charted Resp Rate 18 br/min (JUL 11 07:49) SBP H 148 mmHg (JUL 11 07:49) DBP H 105 mmHg (JUL 11 07:49) SpO2 97 % (JUL 11 07:49) Height 185.42 cm (JUL 11 06:40) Weight 100.2 kg (JUL 11 06:40) BMI 29.14 kg/m2 (JUL 11 06:40) Airway: Normal oral/pharyngeal anatomy.. Respiratory: Adequate air exchange.. Cardiovascular: Adequate perfusion and function. Review / Management Results review: No qualifying data available . Plan Stateless Society of Anesthesiologists (ASA) physical status classification: Class II. Anesthetic Preoperative Plan Anesthesia: Monitored anesthesia care and general anesthesia if required.. Anesthetic plan, risks, benefits, and alternatives discussed with the patient and/or family. Pt. and/or family present and agree to proceed as planned.. Discussed the importance of abstaining from tobacco products, and offered counseling if desired.. Normal [facility] Comment on above: Result Comment: Elec tronically Signed By: Shaq Ly JR, DO\.br\Date and Time Signed: 07/11/18 08:24 EDT Encounters Encounter Date Encounter Type Care Provider Facility Start: 09-06-2020 End: 09-07-[address] AMELIE CHADIWCK Facility:[facility] Start: 04-27-2020 Encounter for genera l adult medical examination without abnormal findings DR AMELIE CHADWICK [facility] Start: 04-21-2020 End: 04-22-[address] AMELIE CHADWICK Facility:[facility] Start: 04-21-2020 End: 04-22-2020 Encounter for general adult medical examination without abnormal findings DR AMELIE CHADWICK Facility:[facility] Procedures Date Procedure Procedure Detail Performing Clinician Start: 04-21-[address] CARMEN CHADWICK Comment on above: Performed By: #### C MP, PSASC, T7, LIPID #### [facility] [address] [address] Florentin Deluca Payers Date Payer Category Payer Unknown [id number] 1970 Unknown [id number] 1957 Unknown [id number] Summary Purpose Family History No Family History Records FoundNo Family History Records Found Advance Directives No Advanced Directives Records FoundNo Advanced Directives Records Found Procedure Findings Note Patient: VALENTE SALINAS Age: 47 years Sex: Male : 1970 Associated Diagnoses: None Author: Shaq Ly JR, DO Postoperative Information Post Operative Note: Post Anesthesia Care Unit. Anesthetic utilized: General, Monitored anesthesia care. Health Status Allergies: Allergic Reactions (Selected) No Known Allergies Current medications: (Selected) Inpatient Medications Ordered Sodium Chloride 0.9% IV Esther 1000 mL 1,000 mL: 1,000 mL, IV, 20 mL/hr, Routine, Start date 07/11/18 7:55:00 EDT, 50 hour(s), Total volume (mL): 1,000 Problem list: No problem items selected or recorded. Physical Examination Intake and Output Denies significant n/v and is tolerating p.o. Vital Signs (last 24 hrs) Last Charted Resp Rate 18 br/min (JUL 11 07:49) SBP H 148 mmHg (JUL 11 07:49) DBP H 105 mmHg (JUL 11 07:49) SpO2 97 % (JUL 11 07:49) Height 185.42 cm (JUL 11 06:40) Weight 100.2 kg (JUL 11:40) BMI 29.14 kg/m2 (JUL 11:40) Respiratory: Adequate air exchange with (more content not included)... Additional Source Comments (unrecognized sect ion and content) No Status Records FoundNo Status Records Found INFORMATION SOURCE (unrecogn ized section and content) DATE CREATED AUTHOR 09/14/2018 [facility] DATE CREATED AUTHOR AUTHOR'S DENISE MULLEN 11/16/2020 [facility] FOR RECORDS PERTAINING TO PATIENTS WHO ARE OR HAVE BEEN ENROLLED IN A CHEMICAL DEPENDENCY/SUBSTANCEABUSE PROGRAM, SOME INFORMATION MAY BE OMITTED. This clinical summary was aggregated from multiple sources. Caution should be exercised in using it in the provision of clinical care. This summary normalizes information from multiple sources, and as a consequence, information in this document may materially change the coding, format and clinical context of patient data. In addition, data may be omitted in some cases. CLINICAL DECISIONS SHOULD BE BASED ON THE PRIMARY CLINICAL RECORDS. [facility] [employer] provides no warranty or guarantee of the accuracy or completeness of information in this document.
== END 2023-07-18 08:00 | disposition home or self-care (01) ==
LOC: US 07:59
PROVIDERS: PCP Family Medicine; Visit Provider Family Medicine
DX: H93.19 Tinnitus, unspecified ear (principal)
CPT/HCPCS: 93880

== ENCOUNTER 2024-08-06 11:32 | Outpatient (OUT) | payer OTHER, SELFPAY ==
--- NOTE | 2024-08-06 11:43 | XR_ITS ---
The [address] [address] Patient Name: VALENTE SALINAS MRN: [id number] date: 1970 Sex: M Assigned Patient Location: [facility] Current Patient Location: [facility] Accession/Order Number: [id number] Exam Date: 08/06/2024 12:06 Report Date: 08/06/2024 12:11 At the request of: AMELIE CHADWICK MD Procedure: XR chest 2V Clinical data: Neck, chest, sternal and upper back pain. Patient hit head on bottom of pool 1-2 weeks ago. CERVICAL SPINE -3 views CLINICAL HISTORY: Neck Pain AP, lateral and odontoid views were obtained. There is no evidence of compression fracture or displacement. There is no significant joint space narrowing or hypertrophy. The atlantoaxial relationship is maintained. There is no prevertebral soft tissue swelling. XR/XR cervical spine 2-3V IMPRESSION: NO ACUTE BONY FINDINGS. THORACIC SPINE -2 views: COMPARISON: None AP and lateral views were obtained. There is subtle thoracolumbar dextroscoliotic curvature. There is no evidence of compression fracture or displacement. The pedicles are intact. Minor endplate spurring is seen. There are no paraspinal soft tissue abnormalities. IMPRESSION: SUBTLE SCOLIOSIS AND MINIMAL DEGENERATIVE CHANGE. NO ACUTE BONY FINDINGS. PA AND LATERAL CHEST: COMPARISON: None There is no focal parenchymal consolidation, effusion or pneumothorax. The cardiac, hilar and mediastinal silhouettes are within normal limits. There is no vascular congestion. The visualized bony thorax is intact. Subtle thoracolumbar dextroscoliotic curvature is seen. IMPRESSION: NO ACUTE CARDIOPULMONARY ABNORMALITY. Impression dictated by: Sandrine Bro M.D. 08/06/2024 12:11 PM Dictation Location: [place] [address] Electronically authenticated by: [id number] Y Date: 08/06/2024 12:11
--- NOTE | 2024-08-06 11:43 | XR_ITS ---
The [address] [address] Patient Name: VALENTE SALINAS MRN: [id number] date: 1970 Sex: M Assigned Patient Location: [facility] Current Patient Location: [facility] Accession/Order Number: [id number] Exam Date: 08/06/2024 12:06 Report Date: 08/06/2024 12:11 At the request of: AMELIE CHADWICK MD Procedure: XR chest 2V Clinical data: Neck, chest, sternal and upper back pain. Patient hit head on bottom of pool 1-2 weeks ago. CERVICAL SPINE -3 views CLINICAL HISTORY: Neck Pain AP, lateral and odontoid views were obtained. There is no evidence of compression fracture or displacement. There is no significant joint space narrowing or hypertrophy. The atlantoaxial relationship is maintained. There is no prevertebral soft tissue swelling. XR/XR chest 2V IMPRESSION: NO ACUTE BONY FINDINGS. THORACIC SPINE -2 views: COMPARISON: None AP and lateral views were obtained. There is subtle thoracolumbar dextroscoliotic curvature. There is no evidence of compression fracture or displacement. The pedicles are intact. Minor endplate spurring is seen. There are no paraspinal soft tissue abnormalities. IMPRESSION: SUBTLE SCOLIOSIS AND MINIMAL DEGENERATIVE CHANGE. NO ACUTE BONY FINDINGS. PA AND LATERAL CHEST: COMPARISON: None There is no focal parenchymal consolidation, effusion or pneumothorax. The cardiac, hilar and mediastinal silhouettes are within normal limits. There is no vascular congestion. The visualized bony thorax is intact. Subtle thoracolumbar dextroscoliotic curvature is seen. IMPRESSION: NO ACUTE CARDIOPULMONARY ABNORMALITY. Impression dictated by: Sandrine Bro M.D. 08/06/2024 12:11 PM Dictation Location: [place] [address] Electronically authenticated by: [id number] Y Date: 08/06/2024 12:11
--- NOTE | 2024-08-06 11:43 | XR_ITS ---
The [address] [address] Patient Name: VALENTE SALINAS MRN: [id number] date: 1970 Sex: M Assigned Patient Location: [facility] Current Patient Location: [facility] Accession/Order Number: [id number] Exam Date: 08/06/2024 12:06 Report Date: 08/06/2024 12:11 At the request of: AMELIE CHADWICK MD Procedure: XR chest 2V Clinical data: Neck, chest, sternal and upper back pain. Patient hit head on bottom of pool 1-2 weeks ago. CERVICAL SPINE -3 views CLINICAL HISTORY: Neck Pain AP, lateral and odontoid views were obtained. There is no evidence of compression fracture or displacement. There is no significant joint space narrowing or hypertrophy. The atlantoaxial relationship is maintained. There is no prevertebral soft tissue swelling. XR/XR thoracic spine 2V IMPRESSION: NO ACUTE BONY FINDINGS. THORACIC SPINE -2 views: COMPARISON: None AP and lateral views were obtained. There is subtle thoracolumbar dextroscoliotic curvature. There is no evidence of compression fracture or displacement. The pedicles are intact. Minor endplate spurring is seen. There are no paraspinal soft tissue abnormalities. IMPRESSION: SUBTLE SCOLIOSIS AND MINIMAL DEGENERATIVE CHANGE. NO ACUTE BONY FINDINGS. PA AND LATERAL CHEST: COMPARISON: None There is no focal parenchymal consolidation, effusion or pneumothorax. The cardiac, hilar and mediastinal silhouettes are within normal limits. There is no vascular congestion. The visualized bony thorax is intact. Subtle thoracolumbar dextroscoliotic curvature is seen. IMPRESSION: NO ACUTE CARDIOPULMONARY ABNORMALITY. Impression dictated by: Sandrine Bro M.D. 08/06/2024 12:11 PM Dictation Location: [place] [address] Electronically authenticated by: [id number] Y Date: 08/06/2024 12:11
--- OUTSIDE RECORDS SUMMARY | 2024-08-06 17:34 | XMS_ITS | CCD ---
Author Organization [facility] Care Team Providers Care Cornice Upholsterer Name Role Phone DR AMELIE CHADWICK Primary Care Unavailable CLINT ANDREWS Attending Unavailable CLINT ANDREWS Admitting Unavailable DR GAMA PERRY Consulting Unavailable CLINT ANDREWS Consulting Unavailable DR AMELIE CHADWICK Consulting Unavailable DR AMELIE CHADWICK Primary Care Unavailable DR AMELIE CHADWICK Admitting Unavailable DR AMELIE CHADWICK Attending Unavailable Problems Active Problems Problem Classification [...] : DR. CLINT ANDREWS . Admission #: [id number] Family : Order #: [id number] CLICK HERE TO VIEW EXAM RADIOLOGY REPORT [...] M.D. on 09/06/2020 at 13:50 Normal [facility] CBC AUTO DIFFon 04-21-2020 BASO # 0.0 103/ul Normal 0.0-0.[address] [facility] Comment on above: Performed By: #### C BC #### [facility] [address], [place] [address] Florentin Sandrine Basophils/100 WBC (Bld) 0.4 % Normal 0.2-2.0 [facility] Comment on above: Performed By: #### C BC #### [facility] [address], [place] [address] Florentin Sandrine EO # 0.2 103/ul Normal 0.0-0.[address] [facility] Comment on above: Performed By: #### C BC #### [facility] [address], [place] [address] Florentin Sandrine Eosinophils/100 WBC (Bld) 4.0 % Normal 0.9-7.[address] [facility] Comment on above: Performed By: #### C BC #### [facility] [address], [place] [address] Florentin Sandrine Erythrocyte distribution width (RBC) [Ratio] 12.9 % Normal 11.0-15.0 [facility] Comment on above: Performed By: #### C BC #### [facility] [address] [place] [address] Florentinsharmin Deluca Hematocrit (Bld) [Volume fraction] 44.4 % Normal 42.0-54.[address] [facility] Comment on above: Performed By: #### C BC #### [facility] [address] [place] [address] Florentin Sandrine Hemoglobin (Bld) [Mass/Vol] 14.7 g/dL Normal 14.0-18.[address] [facility] Comment on above: Performed By: #### C BC #### [facility] [address] [place] [address] Florentinsharmin Deluca IG # 0.01 10e3/ul Normal 0.00-0.[address] [facility] Comment on above: Performed By: #### C BC #### [facility] [address] [place] [address] Florentin Sandrine IG % 0.2 % Normal 0.0-0.[address] [facility] Comment on above: Performed By: #### C BC #### [facility] [address] [place] [address] Florentinsharmin Deluca LYMPH # 1.4 103/ul Normal 1.2-3.8 [facility] Comment on above: Performed By: #### C BC #### [facility] [address] [place] [address] Florentin Deluca Lymphocytes/100 WBC (Bld) 25.2 % Normal 20.5-60.[address] [facility] Comment on above: Performed By: #### C BC #### [facility] [address] [place] [address] Florentin Deluca MANUAL DIFF REQ NO Normal [facility] Comment on above: Performed By: #### C BC #### [facility] [address] [place], [place] [id number] Florentin Deluca MCH (RBC) [Entitic mass] 30.1 pg Normal 25.9-34.[address] [facility] Comment on above: Performed By: #### C BC #### [facility] [address], [place] [address] Florentinsharmin Deluca MCHC (RBC) [Mass/Vol] 33.1 g/dL Normal 29.9-35.2 [facility] Comment on above: Performed By: #### C BC #### [facility] [address], [place] [address] Florentin Sandrine MCV (RBC) [Entitic vol] 90.8 fL Normal 80.0-94.0 [facility] Comment on above: Performed By: #### C BC #### [facility] [address], [place] [address] Florentin Sandrine MONO # 0.4 103/ul Normal 0.3-0.8 [facility] Comment on above: Performed By: #### C BC #### [facility] [address] [place], [place] [address] Florentin Sandrine Monocytes/100 WBC (Bld) 6.9 % Normal 1.7-12.0 [facility] Comment on above: Performed By: #### C BC #### [facility] [address] [place], [place] [address] Florentin Sandrine NEUT # 3.5 103/ul Normal 1.4-6.5 [facility] Comment on above: Performed By: #### C BC #### [facility] [address] [place], [place] [address] Florentin Sandrine Neutrophils/100 WBC (Bld) 63.3 % Normal 43.0-75.0 [facility] Comment on above: Performed By: #### C BC #### [facility] [address], [place] [address] Florentin Sandrine Platelet mean volume (Bld) [Entitic vol] 9.7 fL Normal 9.5-13.5 [facility] Comment on above: Performed By: #### C BC #### [facility] [address] [place], [place] [address] Florentin Sandrine PLT 207 103/ul Normal 150-450 [facility] Comment on above: Performed By: #### C BC #### [facility] [address] [place], [place] [address] Florentin Sandrine RBC 4.89 106/ul Normal 4.70-6.[address] [facility] Comment on above: Performed By: #### C BC #### [facility] [address] [place] [address] Florentin Deluca WBC 5.5 103/ul Normal 4.0-11.[address] [facility] Comment on above: Performed By: #### C BC #### [facility] [address] [place] [address] Florentin Deluca FREE THYROXINE INDEX T7on FTI 2.[address] [facility] Comment on above: Performed By: #### C MP, PSASC, T7, LIPID #### [facility] [address] [place] [address] Florentin Deluca T3U 35.0 % Normal 23.5-40.[address] [facility] Comment on above: Performed By: #### C MP, PSASC, T7, LIPID #### [facility] [address] [place] [address] Florentin Deluca T4 [Mass/Vol] 7.60 ug/dL Normal 5.53-11.00 [facility] Comment on above: Performed By: #### C MP, PSASC, T7, LIPID #### [facility] [address] [place] [address] Florentin Deluca GLYCOHEMOGLOBIN A1Con 2020 ADA RECOMMENDATION ADA THERAPEUTIC TARG ET 6.0 - 7.0 ACTION SUGGESTED > 7.[address] [facility] Comment on above: Performed By: #### A 1C #### [facility] [address] [place] [address] Florentin Sandrine Glucose [Mass/Vol] 105 mg/dL Normal [facility] Comment on above: Performed By: #### A 1C #### [facility] [address] [place] [address] Florentin Sandrine HbA1c (Bld) [Mass fraction] 5.3 % Normal <=6.[address] [facility] Comment on above: Performed By: #### A 1C #### [facility] [address] [place] [address] Florentin Sandrine LIPID PROFILEon 04-21-2020 CHOL-HDL RATIO NORM SEE BELOW Normal [facility] Comment on above: Result Comment: 3.3 - 4.4 LOW RISK 4.4 - 7.1 AVERAGE RISK 7.1 - 11.0 MODERATE RISK >11.0 HIGH RISK Performed By: #### C MP, PSASC, T7, LIPID #### [facility] [address] [id number] Florentin Sandrine Cholesterol [Mass/Vol] 163 mg/dL Normal <=[address] [facility] Comment on above: Performed By: #### C MP, PSASC, T7, LIPID #### [facility] [address] [id number] Florentin Sandrine Cholesterol in HDL [Mass/Vol] 40 mg/dL Normal [facility] Comment on above: Performed By: #### C MP, PSASC, T7, LIPID #### [facility] [address] [id number] Florentin Sandrine Cholesterol in LDL [Mass/Vol] 106.0 mg/dL Normal [facility] Comment on above: Performed By: #### C MP, PSASC, T7, LIPID #### [facility] [address] [id number] Florentin Sandrine Cholesterol.total/Ch olesterol in HDL [Mass ratio] 4.1 {ratio} Normal [facility] Comment on above: Performed By: #### C MP, PSASC, T7, LIPID #### [facility] [address], [place] [address] Florentin Sandrine HDL NORMAL > or = 60 mg/dl - LO W CARDIOVASCULAR RISK <40 mg/dl - HIGH CARDIOVASCULAR RISK Normal [facility] Comment on above: Performed By: #### C MP, PSASC, T7, LIPID #### [facility] [address], [place] [address] Florentin Sandrine LDL CALC NORMAL SEE BELOW Normal [facility] Comment on above: Result Comment: <100 mg/dl OPTIMAL 100 - 129 mg/dl NEAR OR ABOVE OPTIMAL 130 - 159 mg/dl BORDERLINE HIGH 160 - 189 mg/dl HIGH >190 mg/dl VERY HIGH Performed By: #### C MP, PSASC, T7, LIPID #### [facility] [address] [id number] Florentin Sandrine Triglyceride [Mass/Vol] 85 mg/dL Normal <=[address] [facility] Comment on above: Performed By: #### C MP, PSASC, T7, LIPID #### [facility] [address] [id number] Florentin Sandrine VLDL CALC 17.0 mg/dL Normal [facility] Comment on above: Performed By: #### C MP, PSASC, T7, LIPID #### [facility] [address] [place], [place] [address] Florentin Deluca PROF 14(COMP METB)on 021 Albumin [Mass/Vol] 4.0 g/dL Normal 3.5-5.0 [facility] Comment on above: Performed By: #### C MP, PSASC, T7, LIPID #### [facility] [address] [id number] Florentinsharmin Deluca Albumin/Globulin [Mass ratio] 1.2 {ratio} Normal [facility] Comment on above: Performed By: #### C MP, PSASC, T7, LIPID #### [facility] [address] [place], [place] [address] Florentin Sandrine ALP [Catalytic activity/Vol] 64 U/L Normal 38-126 [facility] Comment on above: Performed By: #### C MP, PSASC, T7, LIPID #### [facility] [address] [address] Florentin Sandrine ALT [Catalytic activity/Vol] 36 U/L Normal 21-72 [facility] Comment on above: Performed By: #### C MP, PSASC, T7, LIPID #### [facility] [address] [place], [place] [address] Florentin Sandrine Anion gap [Moles/Vol] 10.8 mmol/L Normal [facility] Comment on above: Performed By: #### C MP, PSASC, T7, LIPID #### [facility] [address] [place], [place] [address] Florentin Sandrine AST [Catalytic activity/Vol] 20 U/L Normal 17-59 [facility] Comment on above: Performed By: #### C MP, PSASC, T7, LIPID #### [facility] [address] [place] [address] Florentin Sandrine Bilirubin [Mass/Vol] 0.9 mg/dL Normal 0.2-1.3 [facility] Comment on above: Performed By: #### C MP, PSASC, T7, LIPID #### [facility] [address] [place] [address] Florentin Sandrine Calcium [Mass/Vol] 9.2 mg/dL Normal 8.4-10.2 [facility] Comment on above: Performed By: #### C MP, PSASC, T7, LIPID #### [facility] [address] [place] [address] Florentin Sandrine Chloride [Moles/Vol] 102 mmol/L Normal 98-107 [facility] Comment on above: Performed By: #### C MP, PSASC, T7, LIPID #### [facility] [address] [place] [address] Florentin Sandrine CO2 [Moles/Vol] 30.4 mmol/L Critically high 22.0-30.0 [facility] Comment on above: Performed By: #### C MP, PSASC, T7, LIPID #### [facility] [address] [place] [address] Florentin Sandrine Creatinine [Mass/Vol] 1.01 mg/dL Normal 0.66-1.25 [facility] Comment on above: Performed By: #### C MP, PSASC, T7, LIPID #### [facility] [address] [place] [address] Florentin Sandrine EGFR-AF NORTHER[place]ISH >60 Normal >=60 [facility] Comment on above: Performed By: #### C MP, PSASC, T7, LIPID #### [facility] [address] [place] [address] Florentin Sandrine EGFR-NON AF [place]THER[place]ISH >60 Normal >=60 [facility] Comment on above: Performed By: #### C MP, PSASC, T7, LIPID #### [facility] [address] [id number] Florentin Sandrine Globulin (S) [Mass/Vol] 3.4 g/dL Normal [facility] Comment on above: Performed By: #### C MP, PSASC, T7, LIPID #### [facility] [address] [address] Florentin Sandrine Glucose [Mass/Vol] 102 mg/dL Normal 74-106 [facility] Comment on above: Performed By: #### C MP, PSASC, T7, LIPID #### [facility] [address] [place] [address] Florentin Sandrine Potassium [Moles/Vol] 4.2 mmol/L Normal 3.4-5.[address] [facility] Comment on above: Performed By: #### C MP, PSASC, T7, LIPID #### [facility] [address] [place] [address] Folrentin Sandrine Protein [Mass/Vol] 7.4 g/dL Normal 6.1-8.2 [facility] Comment on above: Performed By: #### C MP, PSASC, T7, LIPID #### [facility] [address] [place] [address] Florentin Sandrine Sodium [Moles/Vol] 139 mmol/L Normal 137-145 [facility] Comment on above: Performed By: #### C MP, PSASC, T7, LIPID #### [facility] [address] [place] [address] Florentin Sandrine Urea nitrogen [Mass/Vol] 12.0 mg/dL Normal 9.0-20.[address] [facility] Comment on above: Performed By: #### C MP, PSASC, T7, LIPID #### [facility] [address] [place] [address] Florentin Sandrine Urea nitrogen/Creatinine [Mass ratio] 11.9 mg/mg Normal [facility] Comment on above: Performed By: #### C MP, PSASC, T7, LIPID #### [facility] [address] [place] [address] Florentin Sandrine TSHon 04-21-2020 TSH 1.093 uIU/mL Normal 0.470-4.680 [facility] Comment on above: Performed By: #### T SH #### [facility] [address], [place] [address] Florentin Deluca TSH RANGE SEE BELOW Normal [facility] Comment on above: Result Comment: <0.3 4 UIU/ml HYPERTHYROID 0.34-5.60 UIU/ml EUTHYROID >5.60 UIU/ml HYPOTHYROID Performed By: #### T SH #### [facility] [address], [place] [address] Florentin Deluca Reminderson 09-14-2018 Reminders - From: Jaime Pltaa To: N - Clinical; Sent: 09/14/2018 10:05:54 EDT Show up: 07/06/2028 10:05:00 EDT Subject: colonoscopy recall reminder 10 years Reminder/Recall Screening colonoscopy 10 year reminder following screening colonoscopy on 07/11/18 [facility] Coding Summary.on 07-15-2018 Coding Summary. CODING DATE: 07/15/2018 [facility] STATUS: Home (Routine [place]) PAYOR: [employer] Insurance APC DESCRIPTION 5311 Level 1 Lower GI Procedures ADMIT DX: REASON FOR VISIT DX: Z12.11 Encounter for screening for malignant neoplasm of colon FINAL DX: PRINCIPAL: Z12.11 Encounter for screening for malignant neoplasm of colon SECONDARY: K57.30 Diverticulosis of large intestine without perforation or abscess without bleeding PYMT PROC APC STAT DESCRIPTION DOCTOR NAME DATE 52414 5311 T Colonoscopy, flexible; Anderson BERNAL MD 07/11/2018 diagnostic, including collection of specimen(s) by brushing or washing, when performed (separate procedure) 51856 Anesthesia for lower Jaramillo Dejuan Winters DO [...] Tovar Revised Date Saved: 07/15/2018 09:43 am [facility] Progress Note-Physicianon Progress Note-Physician Patient: VALENTE SALINAS [...] Cardiovascular: Regular rhythm. Neurologic: Alert, Oriented. Plan [place] [employer] Anesthesiologists (ASA) physical status classification: Class II. Anesthetic Preoperative Plan Anesthesia: General. . Anesthetic plan, risks, benefits, and alternatives discussed with the patient and/or family. Communication: face to face with (patient 5 minutes, Patient educated on smoking cesstation). [facility] Comment on above: Result Comment: Elec tronically Signed By: Dejuan Jaramillo Jr, DO\.br\Date and Time Signed: 07/12/18 09:24 EDT History and Physicalon 07-11 History and Physical Patient: BIANCA SALINAS Age: 47 years Sex: Male : 1970 Associated Diagnoses: None Author: Anderson BERNAL MD Subjective no changes to H & P [facility] Comment on above: Result Comment: Elec tronically Signed By: Anderson BERNAL MD\.br\Date and Time Signed: 07/11/18 07:46 EDT Inpatient Patient Summaryon 07-11-2018 Inpatient Patient Summary [facility] Clinical Discharge Instructions PERSON INFORMATION Name: VALENTE SALINAS PHYSICIANS Admitting Physician: Anderson BERNAL MD Attending Physician: Anderson BERNAL MD PCP: Akhil COLLAZO, Amelie Discharge Diagnosis: Colon, diverticulosis Comment: PATIENT EDUCATION INFORMATION Instructions: Diverticulosis; Colonoscopy, Care After Surgery Salam (CUSTOM) Medication Leaflets: Follow up: With: Address: When: Anderson BERNAL [address] [place] [address] Business (1) , only if needed MEDICATION LIST Comment: Normal [facility] Main OR Intraoperative Recor don 07-11-2018 Main OR Intraoperative Record IntraOp Document Type FT Summary Primary Physician: Anderson BERNAL MD Finalized Date/Time: 07/11/18 13:20:10 Pt. Name: VALENTE SALINAS/Sex: 1970 Male Med Rec #: [id number] Physician: Anderson BERNAL MD Financial #: [id number] Pt. Type: O Room/Bed: / Admit/Disch: 07/11/18 [...] to review and send charges Christine Ingram RUBBER TRIMMER Case Attendance FT Entry 1 Entry 2 Entry 3 Case Attendee Aliyah WINTERS DO, Shaq BERNAL MD, Anderson Scales RUBBER TRIMMER/, Kayla Role Performed Anesthesiologist of Surgeon - Primary Scrub - Primary Record Time In 07/11/18 08:26:00 07/11/18 08:26:00 07/11/18 08:26:00 Time Out 07/11/18 08:42:00 07/11/18 08:42:00 07/11/18 08:42:00 Procedure COLONOSCOPY(.) COLONOSCOPY(.) COLONOSCOPY(.) Comments Last Modified By: Lorrie Olguin RN, RN, Lorrie Dudley RN 07/11/18 08:43:00 07/11/18 08:43:00 07/11/18 08:43:00 Entry 4 Case Attendee Lorrie Olguin RN Performed Wall And Floor Tiler - Primary Time In 07/11/18 08:26:00 Time [...] Out Anderson BERNAL MD, Given Participants Loyda RUBBER TRIMMER/SA, Clau Garza RN, Aliyah Andrew JR, DO, [...] Points Checked Yes By Lorrie Olguin RN, Liben JR DO, Nicholas J Outcomes Met? Yes Last Modified By: Lorrie [...] to transfer/transport General Comments: Report given to MEDICATION AIDE. RHRN Medication Administration FT Pre-Care Text: Verifies allergies, administers prescribed medications and solutions, administers prescribed antibiotic therapy and immunizing agents as ordered, evaluates response to medications Administers prescribed medications and solutions Entry 1 Expiration Date Yes Outcomes Met? Yes Verified Last Modified By: Lorrie Olguin RN 07/11/18 06:55:03 Post-Care Text: The patient received appropriate medication(s) safely administered during the perioperative period For [facility] please see scanned medication reconcilliation form [...] 07/11/18 08:43 Janeth Ingram CST 07/11/18 13:20 [facility] Main OR PACU I Recordon Main OR PACU I Record PACU Phase I Document Type FT Summary Primary Physician: Anderson BERNAL MD Finalized Date/Time: 07/11/18 09:26:27 Pt. Name: VALENTE SALINAS.O.B./Sex: 1970 Male Med Rec #: [id number] Physician: Anderson BERNAL MD Financial #: [id number] Pt. Type: O Room/Bed: / Admit/Disch: 07/11/18 [...] By: Lorrie Olguin RN 07/11/18 09:26 Normal [facility] Main OR Preoperative Recordo n 07-11-2018 Main OR Preoperative Record Holding Area Document Type FT Summary Primary Physician: Anderson BERNAL MD Finalized Date/Time: 07/11/18 07:48:57 Pt. Name: BRAD VALENTE Rodriguez/Sex: 1970 Male Med Rec #: [id number] Physician: Anderson BERNAL MD Financial #: [id number] Pt. Type: O Room/Bed: / Admit/Disch: 07/11/18 [...] 07:46 Charis Ingram RN 07/11/18 07:48 Normal [facility] Operative Reporton 9 Operative Report Date [...] in good condition. Bryan Rosa Dictated: 07/11/2018 #[id number] Typed: 07/11/2018 #[id number] cc: Bryan Mane M.D. [facility] Comment on above: Result Comment: Elec tronically [...] getting enough exercise. ? Smoking. ? Taking gpta-fum-sczucka pain medicines, like aspirin and ibuprofen. SYMPTOMS [...] Document Reviewed: 12/17/2013 ExitCare? Patient Information ?2014 [employer], [facility]. This information is not intended to replace advice given to you by your health care provider. Make sure you discuss any questions you have with your health care provider. Normal [facility] Progress Note-Physicianon Progress Note-Physician Patient: VALENTE [...] review: No qualifying data available . Plan [place] [employer] Anesthesiologists (ASA) physical status classification: Class II. Anesthetic Preoperative Plan Anesthesia: Monitored anesthesia care and general anesthesia if required.. Anesthetic plan, risks, benefits, and alternatives discussed with the patient and/or family. Pt. and/or family present and agree to proceed as planned.. Discussed the importance of abstaining from tobacco products, and offered counseling if desired.. Normal [facility] Comment on above: Result Comment: Elec tronically Signed By: Shaq Ly JR, DO\.br\Date and Time Signed: 07/11/18 08:24 EDT Encounters Encounter Date Encounter Type Care Provider Facility Start: 09-06-2020 End: 09-07-[address] AMELIE CHADWICK Facility:[facility] Start: 04-27-2020 Encounter for genera l adult medical examination without abnormal findings DR AMELIE CHADWICK [facility] Start: 04-21-2020 End: 04-22-[address] AMELIE CHADWICK Facility:[facility] Start: 04-21-2020 End: 04-22-2020 Encounter for general adult medical examination without abnormal findings DR AMELIE CHADWICK Facility:[facility] Procedures Date Procedure Procedure Detail Performing Clinician Start: 04-21-[address] CARMEN CHADWICK Comment on above: Performed By: #### C MP, PSASC, T7, LIPID #### [facility] [address] [address] Florentin Villagomezen Payers Date Payer Category Payer Unknown [id number] 1970 Unknown [id number] 1957 Unknown [id number] Summary Purpose Family History No Family History [...] section and content) DATE CREATED AUTHOR 09/14/2018 [facility] DATE CREATED AUTHOR AUTHOR'S DENISE MULLEN 11/16/2020 [facility] FOR RECORDS PERTAINING TO PATIENTS WHO [...] BE BASED ON THE PRIMARY CLINICAL RECORDS. [facility] [employer] provides no warranty or guarantee of the accuracy or completeness of information in this document.
== END 2024-08-06 11:33 | disposition home or self-care (01) ==
LOC: RAD 11:34
PROVIDERS: PCP Family Medicine; Visit Provider Family Medicine
DX: S06.0X9A Concussion with loss of consciousness of unspecified duration, initial encounter (principal); R07.89 Other chest pain; M54.9 Dorsalgia, unspecified; M54.2 Cervicalgia
CPT/HCPCS: 71046; 72040; 72070